=== PATIENT | female | born 1970 | race Caucasian/White ===

== ENCOUNTER 2022-01-07 16:15 | Outpatient (RCR) | payer OTHER, SELFPAY | END 2022-03-21 11:10 | disposition home or self-care (01) | PROVIDERS: PCP Emergency Medicine; Visit Provider Physician Assistant Surgical | DX: M53.3 Sacrococcygeal disorders, not elsewhere classified (principal); Z51.89 Encounter for other specified aftercare | CPT/HCPCS: 97110; 97140; 97161 ==

== ENCOUNTER 2022-11-28 12:57 | Outpatient (CLI) | payer OTHER, SELFPAY | END 2022-11-28 12:58 | disposition home or self-care (01) | PROVIDERS: PCP Emergency Medicine; Visit Provider Family Medicine | DX: Z00.00 Encounter for general adult medical examination without abnormal findings (principal); I10 Essential (primary) hypertension; Z13.6 Encounter for screening for cardiovascular disorders; Z11.59 Encounter for screening for other viral diseases | CPT/HCPCS: 80053; 80061; 86803 ==

== ENCOUNTER 2022-12-26 06:32 | Day surgery (SDC) | payer OTHER, SELFPAY ==
[2022-12-26] VITALS (12 sets, daily range): BP systolic 130–156; BP diastolic 64–79; PULSE 57–67; RESP 14–20; TEMP 36.3–36.4; O2SAT 97–100
[2022-12-26] MEDS: LIDOCAINE 1% MDV 20 ML INJECTION (07:27)
--- NOTE | 2022-12-26 08:08 | P.ORPRC_ITS ---
Procedure Note Date of procedure: 12/26/22 Procedure: PREOPERATIVE DIAGNOSIS: 1. Left ring finger soft tissue mass POSTOPERATIVE DIAGNOSIS: 1. Left ring finger soft tissue mass PROCEDURE: 1. Left ring finger soft tissue mass excision SURGEON: Jay Tang MD. PEDIATRIC ALLERGIST: RASHMI Blair - an personal injury legal assistant was critical for this case to aid in patient positioning, tissue retraction, limb manipulation/positioning, and closure. ANESTHESIA: Local anesthetic IMPLANTS: None TOURNIQUET: Finger tourniquet for 11 minutes ESTIMATED BLOOD LOSS: 3 mL COMPLICATIONS: None evident SPECIMENS: Subcutaneous soft tissue mass sent for pathology INDICATIONS: The patient is a pleasant 52-year-old female with history of Dupuytren's and a soft tissue mass on the dorsal aspect of her right finger finger. Left ring finger soft tissue mass was causing discomfort and she did not like the appearance. She presents today for surgical excision. Prior to surgery risks and benefits of procedure discussed with patient all questions were answered and informed consent was obtained. FINDINGS: Subcutaneous soft tissue mass dorsal to the ring finger PIP joint which measured 1 cm x 0.5 cm x 0.5 cm DESCRIPTION OF PROCEDURE: Following a thorough discussion of risks, benefits, and alternatives consent was obtained and the operative site was marked. The patient was brought to the operating room and placed supine on the operating table. A digital nerve block was performed with 1% plain lidocaine and 0.25% plain bupivacaine. The left hand was then prepped and draped in usual sterile fashion. Surgical time-out was performed confirming patient identity surgical site surgical procedure. A digital tourniquet was placed on the ring finger. A chevron-shaped incision was made on the dorsal aspect of the ring finger overlying the subcutaneous soft tissue mass. After making incision, soft tissue mass was identified and was circumferentially dissected from surrounding soft tissues using tenotomy scissors. The mass was noted to lay subcutaneous position superficial to the extensor tendon. Mass was removed in its entirety sent for pathology. The finger tourniquet was released and hemostasis was achieved with bipolar electrocautery. Wound irrigated copious amounts of normal saline. Skin incision was closed with 4-0 nylon simple interrupted sutures. Patient was then transferred recovery room in stable condition. PLAN: 1. Discharged home a day surgery 2. Keep bandage in place for 3 days. 3. Ice, elevation, and [id number]-orpibso pain medications as needed for pain and swelling 4. May perform gentle finger range of motion exercises. 5. Return to [facility] for wound check and suture removed in 10-14 days.
--- NOTE | 2022-12-26 08:08 | W.PM.H&PU ---
History & Physical Update History & Physical Update H&P Reviewed and patient assessed: No changes noted
== END 2022-12-26 08:30 | disposition home or self-care (01) ==
LOC: OR 06:34
PROVIDERS: PCP Emergency Medicine; Visit Provider Orthopaedic Surgery
PROC: (CPT 26111; principal; 2022-12-26 07:30)
DX: R22.32 Localized swelling, mass and lump, left upper limb (principal); M72.0 Palmar fascial fibromatosis [Dupuytren]
CPT/HCPCS: 26111; 88305; S0020

== ENCOUNTER 2024-04-15 11:04 | Outpatient (CLI) | payer OTHER, SELFPAY ==
[2024-04-20 04:24] LABS: HPV Source Endocervical; HPV, High Risk by TMA Not Detected
== END 2024-04-15 11:05 | disposition home or self-care (01) ==
PROVIDERS: PCP Family Medicine; Visit Provider Family Medicine
DX: I10 Essential (primary) hypertension (principal); Z13.220 Encounter for screening for lipoid disorders; Z13.21 Encounter for screening for nutritional disorder; Z11.51 Encounter for screening for human papillomavirus (HPV); Z12.4 Encounter for screening for malignant neoplasm of cervix
CPT/HCPCS: 80053; 80061; 82043; 82306; 82570; 87624; 87625; 88141; 88142